=== PATIENT | male | born 1960 | race Caucasian/White ===

== ENCOUNTER 2016-07-25 15:34 | Emergency (ER) | payer OTHER ==
[~2016-07-25] VITALS: Ht 190.5 cm; Wt 104.7 kg
[~2016-07-25 15:34] MED LIST: ASPIR-TRIN325 M1; CENTRAL VITE T1 EACH; FLEXERIL10 MG PO; IBUPROFEN800 MG; MOTRIN600 MG PO; NORCO 5/3251 TABLET PO; PEN-VEE K,VEET500 MG; PERCOCET 5/31 TABLET PO
[2016-07-25] MEDS ORDERED: MOTRIN600 MG PO (18:28)
[2016-07-25 18:51] VITALS: BP 141/92
== END 2016-07-25 18:52 | disposition home or self-care (01) ==
LOC: EME 15:34
DX: S83.91XA Sprain of unspecified site of right knee, initial encounter (principal); X58.XXXA Exposure to other specified factors, initial encounter; F17.200 Nicotine dependence, unspecified, uncomplicated
CPT/HCPCS: 73564; 99281; 99283